=== PATIENT | female | born 1990 | race Caucasian/White ===

== ENCOUNTER 2017-02-03 10:49 | Emergency (ER) | payer OTHER ==
[~2017-02-03] VITALS: Ht 172.7 cm; Wt 69.4 kg
[2017-02-03 11:18] VITALS: BP 123/81
[2017-02-03] MEDS ORDERED: BENADRYL25 M3 PO (11:43)
--- NOTE | 2017-02-03 11:43 | Emergency Room Report ---
History of Present Illness General Chief Complaint: Skin Rash/Abscess Source: Patient Present Illness HPI 26-year-old female no past medical history presenting with 3 days of bites on her body. Patient states that she is staying at a new airbnb and here on vacation. She noted several bites to her body that are very itchy. Patient states she went to a pharmacy and got ranitidine which has not helped. Also states she has been putting cortisone cream which has provided some relief. Denies any fever chills chest pain throat swelling shortness of breath. Patient denies any history of anaphylaxis. Patient History Past Surgical History: none Pertinent Family History: none Last Menstrual Period: 01/13/17 Now: No Nursing Documentation-[facility] Past Medical History: No Stated History Review of Systems Skin: Reports: rash All Other Systems: negative except mentioned in HPI Physical Exam Vital Signs Date Time Temp Pulse Resp B/P Pulse Ox O2 Delivery O2 Flow Rate FiO2 02/03/17 11:00 98.2 80 16 123/81 99 Room Air Sp02 EP Interpretation: reviewed, normal General Appearance: normal inspection, well appearing, no apparent distress, alert, GCS 15, non-toxic Head: normocephalic, atraumatic Eyes: bilateral eye EOMI, bilateral eye PERRL, bilateral eye normal inspection ENT: normal ENT inspection, normal pharynx, normal voice, moist mucus membranes Neck: normal inspection, full range of motion, supple, no bony tend Respiratory: normal inspection, lungs clear, normal breath sounds, no respiratory distress, no retraction, no wheezing, speaking full sentences, chest symmetrical Cardiovascular #1: normal inspection, regular rate, rhythm, no edema, normal capillary refill Gastrointestinal: normal inspection, non tender, soft, non-distended, no guarding Musculoskeletal: normal inspection, back normal, normal range of motion, non- tender Neurologic: normal inspection, alert, oriented x3, responsive, internet marketing executive III-XII nml as tested, motor strength/tone normal, sensory intact, normal gait, speech normal Psychiatric: normal inspection, judgement/insight normal, memory normal Skin: normal inspection, normal color, warm/dry, well hydrated, normal turgor, other - Several circular insect bites on the back arms legs. Excoriation quevedo from scratching. No signs of infection or purulent drainage Medical Decision Making Diagnostic Impression: Primary Impression: Insect bites Qualified Codes: W57.XXXA - Bitten or stung by nonvenomous insect and other nonvenomous arthropods, initial encounter ER Course 26-year-old female with insect bites to body for 3 days. Patient appears nontoxic no signs of anaphylaxis. Disposition Patient discharged home with prescription of Benadryl. Patient was cautioned that Benadryl can make her sleepy and to not operate a car or any machinery. Patient was informed of strict return precautions such as fever chills rapid spread of rash. Otherwise patient agrees that she will follow up with primary care doctor within one week also informed to follow up with college or university faculty member if she continues to have a chronic rash Last Vital Signs Date Time Temp Pulse Resp B/P Pulse Ox O2 Delivery O2 Flow Rate FiO2 02/03/17 11:18 98.2 80 16 123/81 99 Room Air Disposition: HOME, SELF-CARE Condition: Stable Scripts Diphenhydramine HCl (Benadryl) 25 Mg Capsule 25 MG PO EVERY 6 HOURS Y for Itching for 7 Days, #30 CAP Prov: Bryan Smith M.D. 02/03/17 Bryan Smith M.D. Feb 03, 2017 11:43
[2017-02-03 11:52] VITALS: BP 123/81
== END 2017-02-03 11:52 | disposition home or self-care (01) ==
LOC: EMR 11:45
DX: S40.862A Insect bite (nonvenomous) of left upper arm, initial encounter (principal); S40.861A Insect bite (nonvenomous) of right upper arm, initial encounter; S80.862A Insect bite (nonvenomous), left lower leg, initial encounter; S80.861A Insect bite (nonvenomous), right lower leg, initial encounter; W57.XXXA Bitten or stung by nonvenomous insect and other nonvenomous arthropods, initial encounter; Y92.89 Other specified places as the place of occurrence of the external cause
CPT/HCPCS: 99283